=== PATIENT | male | born 1985 | race Caucasian/White ===

== ENCOUNTER 2021-11-13 13:41 | Outpatient (CLI) | payer OTHER ==
[2021-11-13 15:18] VITALS: BP 108/69
--- NOTE | 2021-11-13 15:18 | SLEEP CARE CONSULTATION ---
Information from patient questionnaire entered by Yanick Adams MA. I have reviewed and concur with the information entered by Yanick Adams MA. This document represents the service I personally performed and the decisions made by , Belinda Cabello ARNP. History of Present Illness Service Date and Time: 11/13/2021 1341 Reason for Visit: New patient, sleep apnea on CPAP therapy, Other (ONSET 2012, ON CPAP) Chief Complaint: reports: Unrefreshed sleep, Snoring, Observed pauses in breathing Date of Onset: 12 YEARS Usual bedtime: 1000 PM Time it takes to fall asleep: 5 MINUTES Snores at night: Yes Observed to quit breathing while asleep: Yes Sleeps alone due to snoring: Yes Number of times waking at night: 0500 Toss, Turn, or Twitch while sleeping: Yes Recalls having dreams: No Feels refreshed in the morning: No Morning headache: Yes Sleepy or fatigued during the day: Yes Ever fallen asleep while driving: Yes Takes day naps: No Dreams during day naps: No Prior sleep studies: Yes Additional HPI information: BING CASTELLANO was previously diagnosed to have moderate, AHI 17.7, obstructive sleep apnea-hypopnea syndrome and comes in today to establish care for CPAP therapy. - Parasomnia Symptoms Ever been unable to move upon waking from sleep: No Walks in sleep: No Talks in sleep: Yes Ever acted out dreams in sleep: Yes Ever felt weak in the knees when startled or emotional: No Bothered by creepy, crawly, restless sensations in legs: Yes Problems with memory or concentration: Yes CPAP Compliance Data - Data Reviewed with Patient Average duration of nightly device use: 3 hours 1 minute Compliance rate %: 21 (180 days) Current pressure setting (cmH2O): 5-9 Average residual AHI: 2.3 Central apnea: 0.1 Obstructive apnea: 0.8 Compliance data discussion: He uses a full face mask and a heated tube. He has a [employer]Med CPAP. He has been getting his supplies from [facility]. He has had his machine for over 5 years and sometimes it will turn on without anyone pushing the button and not turn off when his mask comes off like it used to. Subjective Missed days of use due to: reports: mask issues (taking mask off during the night) Patient concerns: reports: mask discomfort (just changed back to full face that he can wear longer). denies: aerophagia, air blowing in eyes, mask leak noise, condensation in mask/hose, nasal congestion, dry mouth, nose, throat, epistaxis, other Observed to snore while using device: Yes (sometimes) Current pressure setting perceived as: comfortable On therapy, patient: denies: drowsiness while driving Initial [place] Sleepiness Scale score: 23 (2021) Social History The patient's occupation is a AT. Patient is and lives in [place]. Have you smoked in the past 12 months: No Cigarettes per day (20/pack): 20 Years of smokin Quit date: 2019 Smoking Pack Years: 10.0 Alcohol use: Yes Alcohol amount and frequency: 3 x yearly Caffeine use: Yes Caffeine amount and frequency: x everyday Family History Family history of sleep disordered breathing: Yes Family Hx Sleep Apnea: Father: Snoring, Sleep apnea - Treated Allergies and Home Medications Drug allergies reviewed: Yes (fluconazole) Home medication list reviewed: Yes (no daily medications or supplements) Review of Systems Weight gain over past 5 years: 40 Weight loss over past 5 years: 10 Gastrointestinal: reports: heartburn, diarrhea, abdominal pain Ear/Nose/Throat: reports: dry mouth/throat, wisdom teeth removed Endocrine: reports: increased appetite Musculoskeletal: reports: joint pain, muscle pain or cramping Physical Exam Vital signs obtained and entered by: Della ADAMS CMA MA Blood Pressure: 108/69 (LEFT , PUSE 87) Cuff size: wrist Heart Rate: 87 O2 Saturation: 97 (WITH PAPER MASK) Height: 6 ft Weight: 254 lb (WITH CLOTHES) Body Mass Index: 34.4 BMI Classification: Obese Heart: regular rate and rhythm Lungs: clear bilaterally Impression and Plan 1. Obstructive Sleep Apnea-Hypopnea Syndrome, moderate, with poor treatment compliance and good apnea control. He states he goes to sleep with mask on but will take it off in his sleep a few hours in and he does not notice. He tried a nasal pillows mask but recently he changed back to a full face mask because he would wear it for longer periods. He states his device used to turn off when his mask came off but it will continue to run instead. His has walked into the bedroom and his machine will turn on of its own accord. He states his machine is over 5 years old and he would like to update his CPAP. The patients CPAP is over 5 years old and of reasonable use. In addition, it is starting to turn on on its own, a sign of malfunction. Thus, the CPAP will be updated. A DWO prescription will be made. Compliance guidelines for new device and follow up discussed. Patient's apnea severity and rationale for treatment to reduce apnea, improve sleep quality and reduce cardiovascular and cerebrovascular events was reviewed. Currently patients BMI is 34.4. Obesity increases the risk of apnea, CPAP pressure requirements and overall health risks especially cardiovascular and diabetes. Thus patient is advised to try to lose weight for their overall health and to reduce apneas. * Continue auto CPAP pressure at 5-9 cmH2O * Update device * Notify me if snoring with mask or feeling that the pressure is too much or too little * Attempt to lose weight * Call this office if any problems using CPAP * Return for follow up one month after obtaining new device, or sooner if concerns arise Counseling Topics: Spare mask, Weight loss health impact Visit Type: In Office Time Spent with Patient (minutes): 33 Provider Statement: I spent 100% of the Face to Face Visit with the patient with greater than 50% spent counseling the patient and coordination of care.
== END 2021-11-13 13:42 | disposition home or self-care (01) ==
LOC: SC 13:41
PROVIDERS: ATTEND Nurse Practitioner Family
DX: G47.33 Obstructive sleep apnea (adult) (pediatric) (principal); E66.9 Obesity, unspecified; Z68.34 Body mass index [BMI] 34.0-34.9, adult
CPT/HCPCS: 99203; 99212